=== PATIENT | male | born 1975 | race Caucasian/White ===

== ENCOUNTER 2018-03-03 00:10 | Emergency (ER) | payer BC ==
[2018-03-03 00:36] VITALS: RESP 16
--- NOTE | 2018-03-03 01:12 | ED ---
General Adult HPI - General Chief complaint: Recheck/Abnormal Lab/Rx Stated complaint: Exposure to propane leak Source: patient, family Mode of arrival: ambulatory Limitations: no limitations - Related Data Allergies Allergy/AdvReac Type Severity Reaction Status Date / Time No Known Allergies Allergy Verified 03/03/18 00:36 Review of Systems ROS Statement: Those systems with pertinent positive or pertinent negative responses have been documented in the HPI. ROS Other: All systems not noted in ROS Statement are negative. Past Medical History Past Medical History: Hypertension History of Any Multi-Drug Resistant Organisms: None Reported Past Surgical History: No Surgical Hx Reported Past Psychological History: No Psychological Hx Reported Smoking Status: Never smoker Past Alcohol Use History: None Reported Past Drug Use History: None Reported General Exam Limitations: no limitations Course Vital Signs 03/03/18 00:33 Temperature 98.2 F Pulse Rate 72 Respiratory 16 Rate Blood Pressure 129/82 O2 Sat by Pulse 100 Oximetry Medical Decision Making - Medical Decision Making Dictation was produced using edo dictation software. please excuse any grammatical, word or spelling errors. Chief Complaint: 42-year-old male with past medical history of obstructive sleep apnea presents after possible carbon monoxide poisoning. History of Present Illness: 42-year-old male. They have been living in a house they suspect has had propane leaks. Patient presents with his family of 5. They'll have symptoms of headaches. Patient also reports he has a pet who also has symptoms. Been having problems with her landlord. The ROS documented in this emergency department record has been reviewed and confirmed by me. Those systems with pertinent positive or negative responses have been documented in the HPI. All other systems are other negative and/or noncontributory. PHYSICAL EXAM: General Impression: Alert and oriented x3, not in acute distress HEENT: Normocephalic atraumatic, extra-ocular movements intact, pupils equal and reactive to light bilaterally, mucous membranes moist. Cardiovascular: Heart regular rate and rhythm, S1&S2 audible, no murmurs, rubs or gallops Chest: Lungs clear to auscultation bilaterally, no rhonchi, no wheeze, no rales Abdomen: Bowel sounds present, abdomen soft, non-tender, non-distended, no organomegaly Musculoskeletal: Pulses present and equal in all extremities, no peripheral edema Motor: Power 5/5 bilaterally, no focal deficits noted Neurological: CN II-XII grossly intact, no focal motor or sensory deficits noted Skin: Intact with no visualized rashes Psych: Normal affect and mood ED course: 42-year-old male presents with possible carbon monoxide exposure. Vital signs are within normal limits. Laboratory evaluation obtained. Venous blood gas unremarkable. Patient is not hypoxic. Patient's carbon monoxide level is 2.5. Patient is a nonsmoker. She denies any symptoms at this time. Fire department was notified. They will likely state of health to until house is safe for return. - Lab Data Lab Results 03/03/18 03/03/18 Range/Units 01:06 01:06 VBG pH 7.36 (7.31-7.41) VBG pCO2 48 (37-51) mmHg VBG HCO3 26 (24-28) mmol/L Carbon Monoxide, Quant 2.5 (<10.0) % Disposition Clinical Impression: Carbon monoxide exposure Disposition: HOME SELF-CARE Condition: Good Instructions (If sedation given, give patient instructions): Carbon Monoxide Poisoning (ED) Is patient prescribed a controlled substance at d/c from ED?: No Referrals: Joi Kirk MD [Primary Care Provider] - 1-2 days Time of Disposition: 01:52
[2018-03-03 01:16] LABS: VBG PH 7.36 (7.31-7.41)
[2018-03-03 02:18] VITALS: BP 133/73; PULSE 77; TEMP 98
== END 2018-03-03 02:18 | disposition home or self-care (01) ==
LOC: EC 00:10
DX: Z57.5 Occupational exposure to toxic agents in other industries (principal); R51 Headache
CPT/HCPCS: 82375; 82803; 99283